=== PATIENT | male | born 1995 | race African-American/Black ===

== ENCOUNTER 2018-01-13 10:18 | Emergency (ER) | payer MEDICAID ==
[~2018-01-13] VITALS: Ht 177.8 cm; Wt 83.0 kg
[2018-01-13 10:24] VITALS: BP 137/93
[2018-01-13] MEDS ORDERED: IBUPROFEN 800MG TABLET PO ONE (11:00)
== END 2018-01-13 12:44 | disposition home or self-care (01) ==
LOC: ER 10:35
DX: S06.0X0A Concussion without loss of consciousness, initial encounter (principal); M62.830 Muscle spasm of back; M62.838 Other muscle spasm; F12.10 Cannabis abuse, uncomplicated; V89.2XXA Person injured in unspecified motor-vehicle accident, traffic, initial encounter; Y93.89 Activity, other specified; Y92.89 Other specified places as the place of occurrence of the external cause; Y99.8 Other external cause status
CPT/HCPCS: 72050; 99284

== ENCOUNTER 2022-07-18 10:15 | Emergency (ER) | payer MEDICAID ==
[~2022-07-18] VITALS: Ht 175.3 cm; Wt 78.0 kg
[2022-07-18] MEDS ORDERED: KETOROLAC 60MG/2ML VIAL IM ONE (12:15)
[2022-07-18] MEDS ORDERED: METHOCARBAMOL 500MG TABLET PO ONE (12:15)
[2022-07-18 12:35] VITALS: BP 115/74
[2022-07-18] MEDS ORDERED: LIDO1ADH23 TP (13:22)
[2022-07-18] MEDS ORDERED: NAPR-681 MT (13:22)
[2022-07-18] MEDS ORDERED: METH-773 MT (13:22)
== END 2022-07-18 13:52 | disposition home or self-care (01) ==
LOC: ER 10:15
DX: S16.1XXA Strain of muscle, fascia and tendon at neck level, initial encounter (principal); S39.012A Strain of muscle, fascia and tendon of lower back, initial encounter; V49.49XA Driver injured in collision with other motor vehicles in traffic accident, initial encounter; Y93.89 Activity, other specified; Y92.89 Other specified places as the place of occurrence of the external cause; Y99.8 Other external cause status; F12.10 Cannabis abuse, uncomplicated
CPT/HCPCS: 96372; 99283; J1885